=== PATIENT | male | born 1950 | race Caucasian/White ===

== ENCOUNTER 2016-03-16 19:13 | Emergency (ER) | payer OTHER, MEDICARE ==
[~2016-03-16] VITALS: Ht 172.7 cm; Wt 64.1 kg
[2016-03-16 19:40] VITALS: BP 124/88; PULSE 95; RESP 15; TEMP 98.2; O2SAT 96
[2016-03-16 20:36] LABS: EOSINOPHIL % 0.9 % (0.0-4.0); HEMATOCRIT 44.3 % (39.0-51.0); HEMO FLAGS DIFF FINAL; LYMPH % 29.5 % (9.0-44.0); LYMPHOCYTE # 1.5 TH/MM3 (1.0-4.8); MEAN CELL VOLUME 94.4 FL (80.0-100.0); MEAN CORPUSCULAR HEMOGLOBIN 32.3 PG (27.0-34.0); MEAN CORPUSCULAR HGB CONC 34.2 % (32.0-36.0); MONO % 7.8 % (0.0-8.0); NEUT % 60.8 % (16.0-70.0); PLATELET COUNT 186 TH/MM3 (150-450); RED CELL DISTRIBUTION WIDTH 15.4 % (11.6-17.2)
[2016-03-16 20:50] LABS: AMPHETAMINE, URINE NEG (NEG); BARBITURATES, URINE NEG (NEG); COCAINE, URINE NEG (NEG)
[2016-03-16 21:02] LABS: ANION GAP 11 MEQ/L (5-15)
[2016-03-16 21:06] LABS: ALKALINE PHOSPHATASE 101 U/L (45-117); ALT (GPT) 38 U/L (12-78); AST (GOT) 40 U/L (15-37); BICARBONATE 25.8 MEQ/L (21.0-32.0); BLOOD UREA NITROGEN 10 MG/DL (7-18); CHLORIDE 103 MEQ/L (98-107); GLOMERULAR FILTRATION RATE 86 ML/MIN (>89); POTASSIUM 3.8 MEQ/L (3.5-5.1); SODIUM (NA) 140 MEQ/L (136-145); TOTAL BILIRUBIN ADULT 0.7 MG/DL (0.2-1.0)
--- NOTE | 2016-03-16 21:45 | PD ---
HPI Chief Complaint: Psychiatric Symptoms Time Seen by Provider: 21:43 Travel History International Travel<30 days: No Contact w/Intl Traveler<30days: No Traveled to known affect area: No History of Present Illness HPI 65-year-old male that presents to the ED for evaluation of psych. Patient was [place] acted by police after apparently him make a call to police saying that he wanted to hurt himself. Patient apparently slightly as well and per [place] Cruz act he was depressed and he made suicidal statements. Patient has a chronic history of substance abuse including alcohol and he is does tell me that his been drinking a lot of alcohol today. Per patient he got upset at another individual who apparently he is renting a house for but he has not pain anything to him since October. He denies any medical problem. Denies any chest pain. He denies taking any medications. No drugs. Denies any falls or injuries. No complaints at all. He denies any suicidal or homicidal ideation himself. He has been here before for similar. [facility] Past Medical History Medical History: Denies Significant Hx Diabetes: No Diminished Hearing: No Tetanus Vaccination: > 5 Years Social History Alcohol Use: Yes (2 bottles of wine/daily) Tobacco Use: No Substance Use: Yes Allergies-Medications (Allergen,Severity, Reaction): Coded Allergies: No Known Allergies (Unverified , 12/19/15) Reported Meds & Prescriptions Reported Meds & Active Scripts Active No Active Prescriptions or Reported Medications Review of Systems Except as stated in HPI: all other systems reviewed are Neg Physical Exam Narrative GENERAL: SKIN: Warm and dry. HEAD: Atraumatic. Normocephalic. EYES: Pupils equal and round. No scleral icterus. No injection or drainage. ENT: No nasal bleeding or discharge. Mucous membranes pink and moist. NECK: Trachea midline. No JVD. CARDIOVASCULAR: Regular rate and rhythm. RESPIRATORY: No accessory muscle use. Clear to auscultation. Breath sounds equal bilaterally. GASTROINTESTINAL: Abdomen soft, non-tender, nondistended. Hepatic and splenic margins not palpable. MUSCULOSKELETAL: Extremities without clubbing, cyanosis, or edema. No obvious deformities. NEUROLOGICAL: Awake and alert. No obvious cranial nerve deficits. Motor grossly within normal limits. Five out of 5 muscle strength in the arms and legs. Normal speech. PSYCHIATRIC: Intoxicated mood and affect; insight and judgment normal. Data Data Last Documented VS Vital Signs Date Time Temp Pulse Resp B/P Pulse Ox O2 Delivery O2 Flow Rate FiO2 03/16/16 19:40 98.2 95 15 124/88 96 Orders Complete Blood Count With Diff (03/16/16 20:05) Comprehensive Metabolic Panel (03/16/16 20:05) Drug Screen, Random Urine (03/16/16 20:05) Alcohol (Ethanol) (03/16/16 20:05) Psych Screen (03/16/16 20:05) Labs Laboratory Tests Test 03/16/16 20:00 White Blood Count 5.0 TH/MM3 Red Blood Count 4.70 MIL/MM3 Hemoglobin 15.2 GM/DL Hematocrit 44.3 % Mean Corpuscular Volume 94.4 FL Mean Corpuscular Hemoglobin 32.3 PG Mean Corpuscular Hemoglobin 34.2 % Concent Red Cell Distribution Width 15.4 % Platelet Count 186 TH/MM3 Mean Platelet Volume 7.6 FL Neutrophils (%) (Auto) 60.8 % Lymphocytes (%) (Auto) 29.5 % Monocytes (%) (Auto) 7.8 % Eosinophils (%) (Auto) 0.9 % Basophils (%) (Auto) 1.0 % Neutrophils # (Auto) 3.0 TH/MM3 Lymphocytes # (Auto) 1.5 TH/MM3 Monocytes # (Auto) 0.4 TH/MM3 Eosinophils # (Auto) 0.0 TH/MM3 Basophils # (Auto) 0.0 TH/MM3 CBC Comment DIFF FINAL Differential Comment Urine Opiates Screen NEG Urine Barbiturates Screen NEG Urine Amphetamines Screen NEG Urine Benzodiazepines Screen NEG Urine Cocaine Screen NEG Urine Cannabinoids Screen NEG MDM Medical Decision Making Medical Screen Exam Complete: Yes Emergency Medical Condition: Yes Medical Record Reviewed: Yes Interpretation(s) Tox screen negative other than positive for alcohol. CBC Diagram 03/16/16 20:00 Differential Diagnosis Depression versus suicidal ideation versus anxiety versus adjustment disorder versus mood disorder versus bipolar disorder versus schizophrenia versus paranoid disorder versus psychosis versus substance abuse versus alcohol abuse versus alcohol induced psychosis versus homicidality addition versus cutting versus personality disorder Narrative Course 65-year-old male that presents to the ED for evaluation of psych. Patient was properly examined and was found to have signs and symptoms consistent appears to be psychiatric illness. Labs were drawn. Patient was medically clear. Okay to be seen by psych. Mental health screening was discussed with the patient. Diagnosis Primary Impression: Substance induced mood disorder Additional Impression: Alcohol abuse Scripts No Active Prescriptions or Reported Meds Brandon Owens Mar 16, 2016 21:45
[2016-03-16] MEDS ORDERED: FLUMAZENIL 0.5 MG/5 ML VIAL IV PUSH PRN (22:00)
[2016-03-16] MEDS ORDERED: LORazepam 2 MG TAB PO PRN (22:00)
[2016-03-16] MEDS ORDERED: LORazepam 1 MG TAB PO PRN (22:00)
[2016-03-16] MEDS ORDERED: LORazepam 2 MG/ML VIAL IV PUSH PRN ×4 (22:00)
[2016-03-16] MEDS ORDERED: ONDANSETRON HCL 4 MG/2 ML VIAL IV PUSH PRN (22:00)
[2016-03-17 01:51] VITALS: BP 123/78; PULSE 81; RESP 18; O2SAT 100
[2016-03-17 06:23] VITALS: BP 124/71; PULSE 80; RESP 17; O2SAT 98
[2016-03-17 09:54] VITALS: BP 124/71
--- NOTE | 2016-03-17 10:21 | MB ---
cc: FAHEEM BAKER MD DATE OF CONSULTATION: 03/17/2016 PHYSICIAN REQUESTING CONSULTATION Emergency department. REASON FOR CONSULTATION De [place] Cruz Act. HISTORY OF PRESENT ILLNESS Mr. Jensen is a 65-year-old male of a [place] extraction who presents under a [place] Cruz Act from [place] [employer] alleging that the patient called and said he wanted to kill himself because he lived alone. Reviewing the electronic medical record, I see that the patient has presented several times in the past for making similar statements while intoxicated with alcohol. Most recently he was in the ED in December of 2015. His alcohol level on presentation here was 261. The patient was seen and examined. Chart was reviewed. Case was discussed with nurse in the J pod. There has been no evidence of any suicidality or homicidality in the ED overnight. On my examination today, the patient is clinically sober. He adamantly denies any suicidal or homicidal ideation. He says he is looking forward to his retiring and being with her more continuously as he presently splits his time between here and [place] where she is staying. He denies any issues with low mood or elevated mood, nor can I elicit any depressive or hypomanic/manic symptoms. No anxiety symptoms. He denies audiovisual hallucinations and I can elicit no delusional beliefs. The remainder of the psychiatric ROS is negative. The patient requests discharge from the ED this morning. PAST PSYCHIATRIC HISTORY The patient denies a history of psychiatric diagnosis. He denies a history of inpatient or outpatient psychiatric treatment. He denies a history of suicide attempts. FAMILY HISTORY The patient denies family history of serious mental illness or suicide. The patient reports that his mother and father struggled with alcoholism. CHEMICAL DEPENDENCY HISTORY The patient insists that he usually does not drink but says that he was feeling stressed out because he has tenants who live upstairs from him and is not paying rent as he should. He maintains he only had three glasses a white wine last night. No reported history of complicated withdrawal. The patient does not view his substance use as problematic even though it seems to have resulted in him coming into the ER multiple times. SOCIAL HISTORY The patient reports he presently lives alone. His is in [facility]. He travels back and forth to be with her. His has some children, a son and daughter. He is college educated. 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 He denies any or legal history. Denies any access to guns or firearms. PAST MEDICAL HISTORY The patient denies. REVIEW OF SYSTEMS No reported headache, vision or hearing changes, chest pain, shortness of breath, bowel or bladder issues. No other somatic complaints. PHYSICAL EXAMINATION Physical examination was completed in the emergency room by the ER staff and the patient was medically cleared. On my examination today, the patient appears to be in no acute physical distress. He is clinically sober. No signs of withdrawal noted. Labs and vital signs reviewed. MENTAL STATUS EXAMINATION The patient is in hospital gown. He is well-groomed. He is awake, alert and oriented x3. No evidence of delirium. No abnormal motor movements noted. Speech is within normal limits for rate, tone and volume. Language and fund of knowledge seem adequate and appropriate for age. Mood is fair and affect is full and reactive. Thought process linear. No loosening of associations. No evident delusions. Denies AVH. Denies suicidal or homicidal ideation. Insight and judgment are fair generally but likely poor with respect to the alcohol use issues. ASSESSMENT/PLAN 1. Alcohol abuse with intoxication, intoxication now resolved, F10.120. This is a 65-year-old male with psychiatric history as detailed above who presents under a De [place] Cruz Act after making suicidal statements while intoxicated. Now that he has sobered up he denies any suicidal ideation, intent or plan on direct questioning. I can detect no unstable mood, anxiety or psychotic disorder in this patient at this time. Weighing the acute, chronic, and protective factors and based on the available evidence, I director corporate communications to a reasonable degree of medical certainty that the patient is at low imminent risk of harm to self or others from mental illness as defined under the De [place] Cruz Act and his level of function is adequate for outpatient care. The patient does not meet De La Cruz Act criteria and I have lifted the De La Cruz Act. I have strongly recommended that the patient pursue chemical dependency evaluation and treatment because, even though his alcohol use is apparently sporadic, it seems to result in him getting brought into the ED quite a bit. The patient is precontemplative with regards to changing his pattern of alcohol use, unfortunately. We will provide him with some chemical dependency referrals. I have counseled the patient likewise to return to the psychiatric emergency room for any concerning psychiatric symptoms as part of a general safety plan. The patient is otherwise psychiatrically clear for discharge from the ED. Thank you very much for this consultation. Faheem RUSSELL /9:44 AM /10:00 AM AMELIE
== END 2016-03-17 10:08 | disposition home or self-care (01) ==
LOC: NEPA 19:13 → NEPJ 03-17 10:08
DX: F10.14 Alcohol abuse with alcohol-induced mood disorder (principal); F10.120 Alcohol abuse with intoxication, uncomplicated; Y90.8 Blood alcohol level of 240 mg/100 ml or more
CPT/HCPCS: 80053; 80307; 80320; 85025; 99283

== ENCOUNTER 2016-05-27 17:34 | Emergency (ER) | payer OTHER, MEDICARE ==
[2016-05-27 17:41] VITALS: BP 110/78; PULSE 92; RESP 18; TEMP 99; O2SAT 95
--- NOTE | 2016-05-27 18:31 | PD ---
HPI Chief Complaint: Psychiatric Symptoms Time Seen by Provider: 18:26 Travel History International Travel<30 days: No Contact w/Intl Traveler<30days: No Traveled to known affect area: No History of Present Illness HPI 66-year-old male that presents to the ED for evaluation of psych. Patient was [place] acted by police after apparently urinary in with another individual will intoxicated. Patient denies any medical complaints. Per patient he takes no medications. He does tell me that he did drink wine today. Unclear as to what the argument was about but per patient she's never been De La Cruz acted in the past. He apparently made some suicidal statements on the argument nose with the police was called. Patient denies any injuries. Patient denies any other medical problems. Unclear as to the length of symptoms. Denies any psychiatric history. Patient has never been here for psychiatric illness before. 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 HEAD: Atraumatic. Normocephalic. EYES: Pupils equal and round 4 mm reactive to light and accommodation. No scleral icterus. No injection or drainage. ENT: No nasal bleeding or discharge. Mucous membranes pink and moist. Tongue is midline. No uvula deviation. NECK: Trachea midline. No JVD. CARDIOVASCULAR: Regular rate and rhythm. No murmurs, S3, S4. RESPIRATORY: No accessory muscle use. Clear to auscultation. Breath sounds equal bilaterally. GASTROINTESTINAL: Abdomen soft, non-tender, nondistended. Hepatic and splenic margins not palpable. MUSCULOSKELETAL: Extremities without clubbing, cyanosis, or edema. No obvious deformities. Full range of motion of the upper and lower extremities bilaterally. 2+ pulses bilaterally. NEUROLOGICAL: Awake and alert and oriented x 4. No obvious cranial nerve deficits. Motor grossly within normal limits. Five out of 5 muscle strength in the arms and legs. Normal speech. PSYCHIATRIC: Intoxicated mood and affect; insight and judgment normal. Data Data Last Documented VS Vital Signs Date Time Temp Pulse Resp B/P Pulse Ox O2 Delivery O2 Flow Rate FiO2 05/27/16 17:51 18 05/27/16 17:41 99.0 92 110/78 95 Orders Complete Blood Count With Diff (05/27/16 17:57) Comprehensive Metabolic Panel (05/27/16 17:57) Psych Screen (05/27/16 17:57) Drug Screen, Random Urine (05/27/16 17:57) Alcohol (Ethanol) (05/27/16 17:57) Salicylates (Aspirin) (05/27/16 17:57) Tylenol (Acetaminophen) (05/27/16 17:57) Alcohol Withdrawal Asmt-Ciwa ONCE (05/27/16 19:36) Ondansetron Odt (Zofran Odt) (05/27/16 19:45) Acetaminophen (Tylenol) (05/27/16 19:45) Flumazenil Inj (Romazicon Inj) (05/27/16 19:45) Lorazepam (Ativan) (05/27/16 19:45) Lorazepam Inj (Ativan Inj) (05/27/16 19:45) Lorazepam (Ativan) (05/27/16 19:45) Lorazepam Inj (Ativan Inj) (05/27/16 19:45) Lorazepam Inj (Ativan Inj) (05/27/16 19:45) Lorazepam Inj (Ativan Inj) (05/27/16 19:45) Labs Laboratory Tests Test 05/27/16 05/27/16 17:54 17:56 White Blood Count 6.3 TH/MM3 Red Blood Count 4.52 MIL/MM3 Hemoglobin 14.6 GM/DL Hematocrit 43.7 % Mean Corpuscular Volume 96.8 FL Mean Corpuscular Hemoglobin 32.2 PG Mean Corpuscular Hemoglobin 33.3 % Concent Red Cell Distribution Width 13.6 % Platelet Count 243 TH/MM3 Mean Platelet Volume 7.1 FL Neutrophils (%) (Auto) 58.2 % Lymphocytes (%) (Auto) 32.0 % Monocytes (%) (Auto) 7.8 % Eosinophils (%) (Auto) 1.0 % Basophils (%) (Auto) 1.0 % Neutrophils # (Auto) 3.7 TH/MM3 Lymphocytes # (Auto) 2.0 TH/MM3 Monocytes # (Auto) 0.5 TH/MM3 Eosinophils # (Auto) 0.1 TH/MM3 Basophils # (Auto) 0.1 TH/MM3 CBC Comment DIFF FINAL Differential Comment Sodium Level 138 MEQ/L Potassium Level 4.0 MEQ/L Chloride Level 104 MEQ/L Carbon Dioxide Level 23.2 MEQ/L Anion Gap 11 MEQ/L Blood Urea Nitrogen 8 MG/DL Creatinine 0.94 MG/DL Estimat Glomerular Filtration 80 ML/MIN Rate Random Glucose 81 MG/DL Calcium Level 8.5 MG/DL Total Bilirubin 0.6 MG/DL Aspartate Amino Transf 18 U/L (AST/SGOT) Alanine Aminotransferase 23 U/L (ALT/SGPT) Alkaline Phosphatase 117 U/L Total Protein 7.9 GM/DL Albumin 3.9 GM/DL Salicylates Level LESS THAN 1.7 MG/DL Acetaminophen Level LESS THAN 2.0 MCG/ML Ethyl Alcohol Level 226 MG/DL Urine Opiates Screen NEG Urine Barbiturates Screen NEG Urine Amphetamines Screen NEG Urine Benzodiazepines Screen NEG Urine Cocaine Screen NEG Urine Cannabinoids Screen NEG MDM Medical Decision Making Medical Screen Exam Complete: Yes Emergency Medical Condition: Yes Medical Record Reviewed: Yes Interpretation(s) CBC Diagram 05/27/16 17:54 BMP Diagram 05/27/16 17:54 tox positive for alcohol in the 200s Differential Diagnosis Depression versus suicidal ideation versus anxiety versus adjustment disorder versus mood disorder versus bipolar disorder versus schizophrenia versus paranoid disorder versus psychosis versus substance abuse versus alcohol abuse versus alcohol induced psychosis versus homicidality addition versus cutting versus personality disorder Narrative Course 66-year-old male that presents to the ED for evaluation of psych. Patient was properly examined and was found to have no signs of acute disease. This time this appears to be alcohol induced mood disorder. No sign of illness at this time. Patient has been here for similar in the past. Labs were drawn. Patient was medically clear. Okay to be seen by psych. high alcohol level. CIWA ordered. Mental health screening was discussed with the patient. Diagnosis Primary Impression: Substance induced mood disorder Additional Impression: Alcohol abuse Scripts No Active Prescriptions or Reported Meds Brandon Owens May 27, 2016 18:30
[2016-05-27 18:53] LABS: AUTOMATED NEUTROPHIL # 3.7 TH/MM3 (1.8-7.7); BASOPHIL # 0.1 TH/MM3 (0-0.2); EOSINOPHIL # 0.1 TH/MM3 (0-0.4); HEMATOCRIT 43.7 % (39.0-51.0); HEMO FLAGS DIFF FINAL; MEAN CELL VOLUME 96.8 FL (80.0-100.0); MEAN CORPUSCULAR HEMOGLOBIN 32.2 PG (27.0-34.0); MEAN CORPUSCULAR HGB CONC 33.3 % (32.0-36.0); MONO % 7.8 % (0.0-8.0); NEUT % 58.2 % (16.0-70.0); PLATELET COUNT 243 TH/MM3 (150-450); RED BLOOD COUNT 4.52 MIL/MM3 (4.50-5.90); RED CELL DISTRIBUTION WIDTH 13.6 % (11.6-17.2); WHITE BLOOD COUNT 6.3 TH/MM3 (4.0-11.0)
[2016-05-27 19:00] LABS: AMPHETAMINE, URINE NEG (NEG); BARBITURATES, URINE NEG (NEG); COCAINE, URINE NEG (NEG)
[2016-05-27 19:09] LABS: ANION GAP 11 MEQ/L (5-15)
[2016-05-27 19:12] LABS: ACETAMINOPHEN LESS THAN 2.0 MCG/ML (10.0-30.0); ALKALINE PHOSPHATASE 117 U/L (45-117); ALT (GPT) 23 U/L (12-78); AST (GOT) 18 U/L (15-37); BICARBONATE 23.2 MEQ/L (21.0-32.0); BLOOD UREA NITROGEN 8 MG/DL (7-18); CHLORIDE 104 MEQ/L (98-107); GLOMERULAR FILTRATION RATE 80 ML/MIN (>89); SODIUM (NA) 138 MEQ/L (136-145); TOTAL BILIRUBIN ADULT 0.6 MG/DL (0.2-1.0)
[2016-05-27] MEDS ORDERED: ONDANSETRON ODT 4 MG TAB PO PRN (19:45)
[2016-05-27] MEDS ORDERED: LORazepam 1 MG TAB PO PRN (19:45)
[2016-05-27] MEDS ORDERED: FLUMAZENIL 0.5 MG/5 ML VIAL IV PUSH PRN (19:45)
[2016-05-27] MEDS ORDERED: LORazepam 2 MG TAB PO PRN (19:45)
[2016-05-27] MEDS ORDERED: ACETAMINOPHEN 325 MG TAB PO PRN (19:45)
[2016-05-27] MEDS ORDERED: LORazepam 2 MG/ML VIAL IV PUSH PRN ×4 (19:45)
[2016-05-27 20:13] VITALS: BP 123/80; PULSE 75; RESP 18; O2SAT 97
[2016-05-27 22:31] VITALS: BP 104/55; PULSE 79; RESP 18; O2SAT 96
== END 2016-05-28 00:32 | disposition home or self-care (01) ==
LOC: NEDAMB 17:34 → NEPJ 05-28 00:32
DX: F10.14 Alcohol abuse with alcohol-induced mood disorder (principal); Z87.891 Personal history of nicotine dependence
CPT/HCPCS: 80053; 80307; 85025; 99283

== ENCOUNTER 2016-08-22 22:15 | Emergency (ER) | payer MEDICARE, OTHER ==
[~2016-08-22] VITALS: Ht 172.7 cm; Wt 63.6 kg
[2016-08-22] MEDS ORDERED: HALOPERIDOL LACTATE 5 MG/ML AMP IV ONE (22:30)
[2016-08-22] MEDS ORDERED: DIPHTH/TETANUS/ACEL PERTUSSIS (BOOSTER) 0.5 ML VIAL/PFS IM ONE (22:30)
[2016-08-22] MEDS ORDERED: LORazepam 2 MG/ML VIAL IV ONE (22:30)
[2016-08-22] MEDS ORDERED: SODIUM CHLOR 0.9% 1000 ML INJ 1,000 ML IV ONE (22:30)
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
[2016-08-22 22:43] VITALS: BP 132/91; PULSE 105; RESP 18; TEMP 101; O2SAT 95
[2016-08-22 23:04] LABS: AUTOMATED NEUTROPHIL # 4.8 TH/MM3 (1.8-7.7); BASOPHIL # 0.1 TH/MM3 (0-0.2); BASOPHIL % 0.8 % (0.0-2.0); EOSINOPHIL % 0.4 % (0.0-4.0); HEMATOCRIT 42.9 % (39.0-51.0); HEMO FLAGS DIFF FINAL; LYMPH % 32.3 % (9.0-44.0); LYMPHOCYTE # 2.7 TH/MM3 (1.0-4.8); MEAN CELL VOLUME 97.4 FL (80.0-100.0); MEAN CORPUSCULAR HEMOGLOBIN 33.9 PG (27.0-34.0); MEAN CORPUSCULAR HGB CONC 34.7 % (32.0-36.0); MONO % 9.7 % (0.0-8.0); NEUT % 56.8 % (16.0-70.0); PLATELET COUNT 211 TH/MM3 (150-450); RED BLOOD COUNT 4.41 MIL/MM3 (4.50-5.90); RED CELL DISTRIBUTION WIDTH 14.6 % (11.6-17.2); WHITE BLOOD COUNT 8.4 TH/MM3 (4.0-11.0)
[2016-08-22 23:15] LABS: AMPHETAMINE, URINE NEG (NEG); BARBITURATES, URINE NEG (NEG); COCAINE, URINE NEG (NEG)
[2016-08-22 23:21] LABS: ALT (GPT) 34 U/L (12-78); ANION GAP 14 MEQ/L (5-15); AST (GOT) 34 U/L (15-37); BICARBONATE 22.2 MEQ/L (21.0-32.0); BLOOD UREA NITROGEN 18 MG/DL (7-18); CHLORIDE 103 MEQ/L (98-107); GLOMERULAR FILTRATION RATE 71 ML/MIN (>89); POTASSIUM 3.8 MEQ/L (3.5-5.1); SODIUM (NA) 139 MEQ/L (136-145)
[2016-08-22 23:25] LABS: ALKALINE PHOSPHATASE 95 U/L (45-117); TOTAL BILIRUBIN ADULT 0.9 MG/DL (0.2-1.0)
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
== END 2016-08-23 09:09 | disposition home or self-care (01) ==
LOC: NEPD 22:15
DX: F10.129 Alcohol abuse with intoxication, unspecified (principal); Y90.8 Blood alcohol level of 240 mg/100 ml or more; Z23 Encounter for immunization
CPT/HCPCS: 70450; 80053; 80307; 85025; 90471; 90715; 96361; 96374; 96375; 99285; J1630; J2060; J7030

== ENCOUNTER 2016-08-30 14:40 | Emergency (ER) | payer MEDICARE, OTHER ==
[~2016-08-30] VITALS: Ht 177.8 cm; Wt 70.0 kg
[2016-08-30 16:50] VITALS: BP 132/84; PULSE 84; RESP 16; TEMP 97.9; O2SAT 97
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
[2016-08-30] MEDS ORDERED: LORazepam 0.5 MG TAB PO ONE (17:30)
[2016-08-30] MEDS ORDERED: chlordiazePOXIDE 25 MG CAP PO ONE (17:30)
[2016-08-30 18:50] LABS: BLOOD, URINE NEG (NEG); COMMENT (UR) CULT NOT INDICATED; CULTURE IF INDICATED CULT NOT INDICATED; GLUCOSE,URINE NEG (NEG); KETONE, URINE 10 mg/dL (NEG); MUCUS URINE MOD /lpf (OCC); NITRITE,URINE NEG (NEG); PH, URINE 5.5 (5.0-8.5); URINE COLOR YELLOW (YELLW/STRAW)
[2016-08-30 18:50] LABS: AUTOMATED NEUTROPHIL # 4.1 TH/MM3 (1.8-7.7); BASOPHIL # 0.1 TH/MM3 (0-0.2); BASOPHIL % 1.3 % (0.0-2.0); EOSINOPHIL % 0.5 % (0.0-4.0); HEMATOCRIT 44.2 % (39.0-51.0); HEMO FLAGS DIFF FINAL; LYMPH % 19.5 % (9.0-44.0); LYMPHOCYTE # 1.1 TH/MM3 (1.0-4.8); MEAN CORPUSCULAR HEMOGLOBIN 33.4 PG (27.0-34.0); MEAN CORPUSCULAR HGB CONC 33.1 % (32.0-36.0); MONO % 6.4 % (0.0-8.0); NEUT % 72.3 % (16.0-70.0); PLATELET COUNT 242 TH/MM3 (150-450); RED BLOOD COUNT 4.38 MIL/MM3 (4.50-5.90); RED CELL DISTRIBUTION WIDTH 14.5 % (11.6-17.2); WHITE BLOOD COUNT 5.7 TH/MM3 (4.0-11.0)
[2016-08-30 19:15] LABS: ALKALINE PHOSPHATASE 102 U/L (45-117); ALT (GPT) 39 U/L (12-78); TOTAL BILIRUBIN ADULT 0.6 MG/DL (0.2-1.0)
[2016-08-30 19:20] VITALS: BP 140/81; PULSE 78; RESP 18; O2SAT 98
[2016-08-30 19:29] LABS: ANION GAP 9 MEQ/L (5-15); AST (GOT) 38 U/L (15-37); BICARBONATE 25.1 MEQ/L (21.0-32.0); BLOOD UREA NITROGEN 16 MG/DL (7-18); CHLORIDE 106 MEQ/L (98-107); GLOMERULAR FILTRATION RATE 80 ML/MIN (>89); POTASSIUM 4.1 MEQ/L (3.5-5.1); SODIUM (NA) 140 MEQ/L (136-145)
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
[2016-08-30 20:59] LABS: AMPHETAMINE, URINE NEG (NEG); BARBITURATES, URINE NEG (NEG); COCAINE, URINE NEG (NEG)
[2016-08-30 21:05] VITALS: BP 152/87; PULSE 72; RESP 18; TEMP 97.1; O2SAT 97
[2016-08-31 07:05] VITALS: BP 142/83; PULSE 77; RESP 18; O2SAT 96
[2016-08-31 11:11] VITALS: BP 151/78; PULSE 88; RESP 16
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
[2016-08-31 18:55] VITALS: BP 132/74; TEMP 98.3
== END 2016-08-31 18:57 | disposition home or self-care (01) ==
LOC: NEDAMB 14:40 → NEPJ 08-31 18:57
DX: F43.25 Adjustment disorder with mixed disturbance of emotions and conduct (principal); F10.10 Alcohol abuse, uncomplicated; R45.851 Suicidal ideations; Z87.891 Personal history of nicotine dependence
CPT/HCPCS: 80053; 80307; 81001; 85025; 99284

== ENCOUNTER 2016-09-11 18:07 | Emergency (ER) | payer MEDICARE, OTHER ==
[2016-09-11 18:11] VITALS: BP 108/71; PULSE 99; RESP 20; TEMP 98.9; O2SAT 95
--- NOTE | 2016-09-11 18:43 | PD ---
Physical Exam Date Seen by Provider: Sep 11, 2016 Time Seen by Provider: 18:41 Narrative 66 yo male here for evaluation of possible infection to both feet. Has had this for 10 days. Pain is severe. Hurts to walk. Swollen 2nd toes on the right and left foot with redness noted. Erythema seems to be more severe on left foot. Discoloration noted to both toes. tender. Vitals are stable. Awaiting bed placement. Data Data Last Documented VS Vital Signs Date Time Temp Pulse Resp B/P Pulse Ox O2 Delivery O2 Flow Rate FiO2 09/11/16 18:11 98.9 99 20 108/71 95 Room Air [facility] Medical Record Reviewed: Yes Supervised Visit with KIRILL: No Scripts No Active Prescriptions or Reported Meds Brandon Owens Sep 11, 2016 18:43
== END 2016-09-11 21:05 | disposition left against medical advice (07) ==
LOC: NETRI 21:00
DX: M79.89 Other specified soft tissue disorders (principal); L53.9 Erythematous condition, unspecified; M79.675 Pain in left toe(s); M79.674 Pain in right toe(s)
CPT/HCPCS: 99281

== ENCOUNTER 2016-09-26 08:57 | Inpatient (IN) | payer MEDICARE ==
[~2016-09-26] VITALS: Ht 170.2 cm; Wt 65.0 kg
[2016-09-26 08:58] VITALS: BP 131/77; PULSE 96; RESP 20; TEMP 99; O2SAT 97
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
[2016-09-26] MEDS ORDERED: VANCOMYCIN INJ 1,000 MG in SODIUM CHLOR 0.9% 250 ML INJ 250 ML IV STA (09:21)
[2016-09-26] MEDS ORDERED: SODIUM CHLOR 0.9% 1000 ML INJ 1,000 ML IV ONE ×2 (09:21)
[2016-09-26] MEDS ORDERED: SODIUM CHLOR 0.9% 1000 ML INJ 100 ML IV ONE (09:21)
--- NOTE | 2016-09-26 09:54 | RADRPT ---
EXAM DATE/TIME: 09/26/2016 09:27 [facility] COMPARISON: No previous studies available for comparison. INDICATIONS : Cough. MEDICAL HISTORY : None. SURGICAL HISTORY : None. ENCOUNTER: Initial ACUITY: 1 day PAIN SCORE: 0/10 LOCATION: Bilateral chest FINDINGS: Lungs are mildly hyperexpanded without significant focal pleural or parenchymal opacities. Cardiomedi astinal contours are within normal limits. Multiple healed bilateral fractures are noted. CONCLUSION: 1. No acute cardiopulmonary disease. Erik Rosa MD on September 26, 2016 at 9:52 Board Certified Radiologist. This report was verified electronically.
[2016-09-26 10:22] LABS: AUTOMATED NEUTROPHIL # 8.6 TH/MM3 (1.8-7.7); BASOPHIL # 0.2 TH/MM3 (0-0.2); BASOPHIL % 2.2 % (0.0-2.0); EOSINOPHIL # 0.1 TH/MM3 (0-0.4); EOSINOPHIL % 1.1 % (0.0-4.0); HEMATOCRIT 39.7 % (39.0-51.0); LYMPH % 6.4 % (9.0-44.0); LYMPHOCYTE # 0.7 TH/MM3 (1.0-4.8); MEAN CELL VOLUME 100.4 FL (80.0-100.0); MEAN CORPUSCULAR HEMOGLOBIN 34.8 PG (27.0-34.0); MEAN CORPUSCULAR HGB CONC 34.6 % (32.0-36.0); MONO % 6.3 % (0.0-8.0); PLATELET COUNT 212 TH/MM3 (150-450); RED BLOOD COUNT 3.95 MIL/MM3 (4.50-5.90); RED CELL DISTRIBUTION WIDTH 14.3 % (11.6-17.2); WHITE BLOOD COUNT 10.2 TH/MM3 (4.0-11.0)
[2016-09-26 10:28] LABS: HEMO FLAGS AUTO DIFF
[2016-09-26 10:38] LABS: ALT (GPT) 35 U/L (12-78); ANION GAP 8 MEQ/L (5-15); AST (GOT) 42 U/L (15-37); BICARBONATE 25.7 MEQ/L (21.0-32.0); BLOOD UREA NITROGEN 23 MG/DL (7-18); CHLORIDE 101 MEQ/L (98-107); GLOMERULAR FILTRATION RATE 88 ML/MIN (>89); POTASSIUM 4.2 MEQ/L (3.5-5.1); SODIUM (NA) 135 MEQ/L (136-145)
[2016-09-26 10:41] LABS: ALKALINE PHOSPHATASE 90 U/L (45-117); TOTAL BILIRUBIN ADULT 2.1 MG/DL (0.2-1.0)
--- NOTE | 2016-09-26 10:52 | RADRPT ---
EXAM DATE/TIME: 09/26/2016 09:29 [facility] COMPARISON: No previous studies available for comparison. INDICATIONS : Right foot pain, pus like wounds MEDICAL HISTORY : None. SURGICAL HISTORY : None. ENCOUNTER: Initial ACUITY: 1 day PAIN SCORE: 8/10 LOCATION: Right foot FINDINGS: 3 views of the right foot reveal a soft tissue defect involving the lateral plantar soft tissues at t he level of the mid foot. At least 7 radiopaque foreign bodies are observed within the soft tissue de fect. There is a dominant foreign body that measures 4 x 1 mm. Density is approaching that of metal. No cortical destruction or lucency. No fracture or dislocation. CONCLUSION: Soft tissue defect with multiple radiopaque foreign bodies as detailed above. Robert Malhotra Jr., MD on September 26, 2016 at 10:47 Board Certified Radiologist. This report was verified electronically.
[2016-09-26 11:03] VITALS: BP 137/79; PULSE 78; RESP 16; O2SAT 100
[2016-09-26 11:04] LABS: SCAN/DIFF FINAL DIFF MANUAL
[2016-09-26] MEDS ORDERED: ACETAMINOPHEN 325 MG TAB PO PRN (11:15)
[2016-09-26] MEDS ORDERED: ONDANSETRON HCL 4 MG/2 ML VIAL IV PUSH PRN (11:15)
[2016-09-26 11:57] VITALS: BP 148/84; PULSE 75; RESP 16; O2SAT 99
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
[2016-09-26] MEDS ORDERED: Vancomycin Consult Pharmacy 1 EA OTHER SCH (13:00)
[2016-09-26 13:13] LABS: BACTERIA, URINE OCC /hpf; BLOOD, URINE NEG (NEG); GLUCOSE,URINE NEG (NEG); HYALINE CAST, URINE 2 /lpf (RARE); KETONE, URINE 80 mg/dL (NEG); MUCUS URINE MANY /lpf (OCC); NITRITE,URINE NEG (NEG); SQUAMOUS EPITHELIAL CELL URINE 1 /hpf (0-5); TRANSITIONAL EPI CELLS, URINE <1 /hpf
[2016-09-26 13:18] LABS: URINE COLOR LIGHT-ORANGE (YELLW/STRAW)
[2016-09-26 13:19] LABS: COMMENT (UR) CATH-CULTURE IND; CULTURE IF INDICATED CATH CULTURE IND
--- NOTE | 2016-09-26 13:26 | RADRPT ---
EXAM DATE/TIME: 09/26/2016 12:52 [facility] COMPARISON: No previous studies available for comparison. INDICATIONS : Increased lab values. MEDICAL HISTORY : Disseminated skin infection. SURGICAL HISTORY : None. ENCOUNTER: Initial ACUITY: 1 day PAIN SCORE: 0/10 LOCATION: Bilateral upper quadrant MEASUREMENTS: LIVER: 14.6 cm length COMMON DUCT: 5 mm RIGHT KIDNEY: 10.0 x 6.5 x 4.2 cm SPLEEN: 11.2 cm length FINDINGS: LIVER: Increased hepatic echotexture without focal lesion or ductal dilatation. COMMON DUCT: No intraluminal mass or stone visualized. GALLBLADDER: Contains no stones, demonstrates no wall thickening or pericholecystic fluid. PANCREAS: The visualized portions are within normal limits. RIGHT KIDNEY: No hydronephrosis, stone or mass. SPLEEN: No focal lesion. CONCLUSION: 1. Increased hepatic echotexture characteristic of diffuse fatty infiltration. 2. Otherwise negative. Italo Pope MD on September 26, 2016 at 13:23 Board Certified Radiologist. This report was verified electronically.
[2016-09-26] MEDS ORDERED: PIPERACIL-TAZO 3.375 GM PREMIX 50 ML IV SCH (14:00)
[2016-09-26 14:06] VITALS: BP 143/79; PULSE 82; RESP 16; O2SAT 99
--- NOTE | 2016-09-26 15:42 | HHI.PR ---
Addendum to Inpatient Note Addendum Reason: Additional Documentation Additional Information Came to examine the patient in the ED. Patient on weight of 4. Let the patient 's foot clinically he has a large abscess of the right foot. Explained to patient he needs to go to the OR tomorrow morning. Patient refuses states he will sign out AGAINST MEDICAL ADVICE. If patient decides to stay I will see him tomorrow and consider OR debridement on Friday. Explained to the patient that he could lose his foot. He states he doesn't care he cannot stay in the hospital. Lance Artis DPM Sep 26, 2016 15:42
[2016-09-27] MEDS ORDERED: VANCOMYCIN 1,000 MG/NS 250 ML IV SCH ×2 (04:00)
[2016-09-29] MEDS ORDERED: PHARMACY ORDERED LAB ONE (09:45)
== END 2016-09-26 16:14 | disposition left against medical advice (07) | DRG 603 ==
LOC: NEPD 08:57 → NEDA 11:21 → N07A 15:56
PROVIDERS: ADMIT Internal Medicine; ATTEND Internal Medicine
DX: L03.115 Cellulitis of right lower limb (principal); L02.611 Cutaneous abscess of right foot; B95.8 Unspecified staphylococcus as the cause of diseases classified elsewhere; S90.851A Superficial foreign body, right foot, initial encounter; Z87.891 Personal history of nicotine dependence
CPT/HCPCS: 71010; 73630; 76705; 80053; 81001; 82248; 83605; 85007; 85027; 86403; 87040; 87070; 87086; 87186; 87205; 96365; J2543; J3370; J7030; J7050

== ENCOUNTER 2017-02-05 14:36 | Emergency (ER) | payer MEDICARE, OTHER ==
[~2017-02-05] VITALS: Ht 167.6 cm; Wt 65.0 kg
[2017-02-05 14:40] VITALS: BP 135/84; PULSE 91; RESP 16; TEMP 97.8; O2SAT 96
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
== END 2017-02-05 17:04 | disposition home or self-care (01) ==
LOC: NEDAMB 14:36
DX: F10.10 Alcohol abuse, uncomplicated (principal)
CPT/HCPCS: 99282

== ENCOUNTER 2017-03-29 21:01 | Emergency (ER) | payer MEDICARE, OTHER ==
[2017-03-29 21:31] VITALS: BP 150/90; PULSE 78; RESP 16; TEMP 97.8; O2SAT 100
[2017-03-29 22:26] VITALS: BP 161/85; PULSE 74; RESP 20; O2SAT 100
[2017-03-29 22:26] LABS: AUTOMATED NEUTROPHIL # 2.6 TH/MM3 (1.8-7.7); BASOPHIL # 0.1 TH/MM3 (0-0.2); BASOPHIL % 1.2 % (0.0-2.0); EOSINOPHIL % 0.6 % (0.0-4.0); HEMATOCRIT 44.3 % (39.0-51.0); HEMOGLOBIN 15.4 GM/DL (13.0-17.0); LYMPH % 38.7 % (9.0-44.0); LYMPHOCYTE # 1.9 TH/MM3 (1.0-4.8); MEAN CELL VOLUME 100.4 FL (80.0-100.0); MEAN CORPUSCULAR HEMOGLOBIN 34.9 PG (27.0-34.0); MEAN CORPUSCULAR HGB CONC 34.7 % (32.0-36.0); MONO % 6.2 % (0.0-8.0); MONOCYTE # 0.3 TH/MM3 (0-0.9); NEUT % 53.3 % (16.0-70.0); PLATELET COUNT 210 TH/MM3 (150-450); RED BLOOD COUNT 4.41 MIL/MM3 (4.50-5.90); RED CELL DISTRIBUTION WIDTH 14.7 % (11.6-17.2); WHITE BLOOD COUNT 4.8 TH/MM3 (4.0-11.0)
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
[2017-03-29 22:39] LABS: ALT (GPT) 47 U/L (12-78); AST (GOT) 53 U/L (15-37); BICARBONATE 27.8 MEQ/L (21.0-32.0); BLOOD UREA NITROGEN 13 MG/DL (7-18); CALCIUM 8.5 MG/DL (8.5-10.1); CHLORIDE 105 MEQ/L (98-107); CREATININE 0.85 MG/DL (0.60-1.30); GLOMERULAR FILTRATION RATE 90 ML/MIN (>89); GLUCOSE,RANDOM 86 MG/DL (74-106); SODIUM (NA) 140 MEQ/L (136-145)
[2017-03-29 22:49] LABS: ALKALINE PHOSPHATASE 98 U/L (45-117); TOTAL BILIRUBIN ADULT 0.7 MG/DL (0.2-1.0); TOTAL PROTEIN 8.2 GM/DL (6.4-8.2)
[2017-03-29 23:09] LABS: ACETAMINOPHEN LESS THAN 2.0 MCG/ML (10.0-30.0)
[2017-03-30 06:41] VITALS: BP 155/83; PULSE 80; RESP 20; O2SAT 96
== END 2017-03-30 07:14 | disposition home or self-care (01) ==
LOC: NEDAMB 21:01 → NEPD 03-30 07:14
DX: F10.94 Alcohol use, unspecified with alcohol-induced mood disorder (principal); F10.920 Alcohol use, unspecified with intoxication, uncomplicated; Y90.7 Blood alcohol level of 200-239 mg/100 ml
CPT/HCPCS: 80053; 80307; 84443; 85025; 99283

== ENCOUNTER 2017-05-25 18:17 | Emergency (ER) | payer MEDICARE, OTHER ==
[2017-05-25 18:37] VITALS: BP 154/82; PULSE 78; RESP 20; TEMP 98.6; O2SAT 97
--- NOTE | 2017-05-25 18:48 | PD ---
HPI Chief Complaint: Psychiatric Symptoms Time Seen by Provider: 18:44 Travel History International Travel<30 days: No Contact w/Intl Traveler<30days: No Traveled to known affect area: No History of Present Illness HPI 67-year-old male presents the emergency department under the De [place] Cruz act for suicidal ideation. Patient reportedly called 911 stating that he was going to kill himself if he did not get what he wanted. He stated this several times to the motor coach tour operator. Patient now arrives stating that he never sought said these things. He appears intoxicated. History is limited. He is able to ambulate without difficulty. He has no known drug allergies. [facility] Past Medical History Medical History: Denies Significant Hx Diabetes: No Diminished Hearing: No Immunizations Current: No Social History Alcohol Use: Yes (A FEW TIMES A WEEK ) Tobacco Use: No (SMOKE CIGAR - QUIT 30 YEARS ) Substance Use: Yes (alcohol) Allergies-Medications (Allergen,Severity, Reaction): Coded Allergies: No Known Allergies (Unverified , 09/26/16) Reported Meds & Prescriptions Reported Meds & Active Scripts Active No Active Prescriptions or Reported Medications Review of Systems ROS Limitations: Intoxication Except as stated in HPI: all other systems reviewed are Neg General / Constitutional: No: Fever Eyes: No: Visual changes HENT: No: Headaches Cardiovascular: No: Chest Pain or Discomfort Respiratory: No: Shortness of Breath Gastrointestinal: No: Abdominal Pain Genitourinary: No: Dysuria Musculoskeletal: No: Pain Skin: No Rash Neurologic: No: Weakness Psychiatric: No: Depression Endocrine: No: Polydipsia Hematologic/Lymphatic: No: Easy Bruising Physical Exam Exam Limitations: Intoxication Narrative GENERAL: Patient appears intoxicated but otherwise in no acute distress. SKIN: Warm and dry. No signs of trauma. Normal color. Normal turgor. HEAD: Atraumatic. Normocephalic. EYES: Pupils equal and round. No scleral icterus. No injection or drainage. ENT: No nasal bleeding or discharge. Mucous membranes pink and moist. Pharynx is clear. NECK: Trachea midline. Supple CARDIOVASCULAR: Regular rate and rhythm. RESPIRATORY: No accessory muscle use. Clear to auscultation. Breath sounds equal bilaterally. MUSCULOSKELETAL: Extremities without clubbing, cyanosis, or edema. No obvious deformities. NEUROLOGICAL: Awake and alert. No obvious cranial nerve deficits. Motor grossly within normal limits. Five out of 5 muscle strength in the arms and legs. Normal speech. PSYCHIATRIC: Patient is intoxicated Data Data Last Documented VS Vital Signs Date Time Temp Pulse Resp B/P (MAP) Pulse Ox O2 Delivery O2 Flow Rate FiO2 05/25/17 18:37 98.6 78 20 154/82 (106) 97 Orders Orders Complete Blood Count With Diff (05/25/17 18:43) Comprehensive Metabolic Panel (05/25/17 18:43) Thyroid Stimulating Hormone (05/25/17 18:43) Urinalysis - C+S If Indicated (05/25/17 18:43) Psych Screen (05/25/17 18:43) Drug Screen, Random Urine (05/25/17 18:43) Alcohol (Ethanol) (05/25/17 18:43) MDM Medical Decision Making Medical Screen Exam Complete: Yes Emergency Medical Condition: Yes Medical Record Reviewed: Yes Differential Diagnosis De [place] Cruz act. Alcohol intoxication. Alcohol induced mood disorder. Suicidal ideation Narrative Course Patient appears medically stable at time of exam Psychiatric labs were ordered per protocol. Psychiatric screening is ordered. Patient medically clear for psychiatric evaluation. Scripts No Active Prescriptions or Reported Meds Condition: Stable Fernando Akins May 25, 2017 18:47
[2017-05-25 19:29] LABS: BILIRUBIN, URINE NEG (NEG); BLOOD, URINE NEG (NEG); GLUCOSE,URINE NEG (NEG); KETONE, URINE NEG (NEG); NITRITE,URINE NEG (NEG); PH, URINE 7.5 (5.0-8.5); URINE COLOR YELLOW (YELLW/STRAW); URINE LEUKOCYTE ESTERASE NEG (NEG)
[2017-05-25 19:41] LABS: AUTOMATED NEUTROPHIL # 2.5 TH/MM3 (1.8-7.7); BASOPHIL # 0.1 TH/MM3 (0-0.2); BASOPHIL % 1.2 % (0.0-2.0); EOSINOPHIL % 0.4 % (0.0-4.0); HEMATOCRIT 46.4 % (39.0-51.0); HEMOGLOBIN 16.1 GM/DL (13.0-17.0); LYMPH % 48.1 % (9.0-44.0); LYMPHOCYTE # 2.8 TH/MM3 (1.0-4.8); MEAN CELL VOLUME 100.3 FL (80.0-100.0); MEAN CORPUSCULAR HEMOGLOBIN 34.8 PG (27.0-34.0); MEAN CORPUSCULAR HGB CONC 34.7 % (32.0-36.0); MEAN PLATELET VOLUME 7.1 FL (7.0-11.0); MONO % 6.8 % (0.0-8.0); MONOCYTE # 0.4 TH/MM3 (0-0.9); NEUT % 43.5 % (16.0-70.0); PLATELET COUNT 203 TH/MM3 (150-450); RED BLOOD COUNT 4.63 MIL/MM3 (4.50-5.90); RED CELL DISTRIBUTION WIDTH 13.4 % (11.6-17.2); WHITE BLOOD COUNT 5.8 TH/MM3 (4.0-11.0)
[2017-05-25 19:43] LABS: ALBUMIN 4.3 GM/DL (3.4-5.0); AST (GOT) 71 U/L (15-37); BICARBONATE 25.9 MEQ/L (21.0-32.0); BLOOD UREA NITROGEN 9 MG/DL (7-18); CALCIUM 8.8 MG/DL (8.5-10.1); CHLORIDE 106 MEQ/L (98-107); CREATININE 1.03 MG/DL (0.60-1.30); GLOMERULAR FILTRATION RATE 72 ML/MIN (>89); GLUCOSE,RANDOM 98 MG/DL (74-106); SODIUM (NA) 142 MEQ/L (136-145)
[2017-05-25 19:45] LABS: ALT (GPT) 55 U/L (12-78)
[2017-05-25 19:54] LABS: ALKALINE PHOSPHATASE 96 U/L (45-117); TOTAL BILIRUBIN ADULT 2.6 MG/DL (0.2-1.0); TOTAL PROTEIN 8.5 GM/DL (6.4-8.2)
[2017-05-25 22:37] VITALS: BP 145/87; PULSE 94; RESP 17; TEMP 98.5; O2SAT 96
[2017-05-26 02:34] VITALS: BP 105/53; PULSE 87; RESP 18; TEMP 98.6; O2SAT 96
[2017-05-26 06:38] VITALS: BP 113/64; PULSE 80; RESP 18; TEMP 99.4; O2SAT 97
[2017-05-26 06:39] VITALS: BP 129/69; PULSE 52; RESP 18; TEMP 98.6; O2SAT 96
[2017-05-26 13:08] VITALS: BP 124/60; PULSE 83; RESP 18; O2SAT 96
--- NOTE | 2017-05-26 15:33 | PD.PSY.CON ---
Provisional Diagnosis Admission Date History of Present Illness Service Psychiatry Consult Requested By alcohol induced mod disorder Reason for Consult De La Cruz act Primary Care Physician No Primary Care Physician HPI 67-year-old male presents the emergency department under the [place] Cruz act for suicidal ideation. Patient reportedly called 911 stating that he was going to kill himself if he did not get what he wanted. He stated this several times to the drivematic machine operator. Patient now arrives stating that he never sought said these things. He appears intoxicated. History is limited. He is able to ambulate without difficulty. He has no known drug allergies. On psychiatric evaluation today the patient is clinically sober, he denies depressive symptoms , he denies anxiety, he denies suicidal or homicidal ideation, denies visual and auditory hallucinate. Patient is fully oriented 3, logical, coherent and relevant. Past Family Social History Coded Allergies: No Known Allergies (Unverified , 09/26/16) No Active Prescriptions or Reported Meds Physical Exam Vital Signs Vital Signs Date Time Temp Pulse Resp B/P (MAP) Pulse Ox O2 Delivery O2 Flow Rate FiO2 05/26/17 13:08 83 18 124/60 (81) 96 Room Air 05/26/17 06:38 99.4 Lab Results Test 05/25/17 19:00 White Blood Count 5.8 TH/MM3 Red Blood Count 4.63 MIL/MM3 Hemoglobin 16.1 GM/DL Hematocrit 46.4 % Mean Corpuscular Volume 100.3 FL Mean Corpuscular Hemoglobin 34.8 PG Mean Corpuscular Hemoglobin Concent 34.7 % Red Cell Distribution Width 13.4 % Platelet Count 203 TH/MM3 Mean Platelet Volume 7.1 FL Neutrophils (%) (Auto) 43.5 % Lymphocytes (%) (Auto) 48.1 % Monocytes (%) (Auto) 6.8 % Eosinophils (%) (Auto) 0.4 % Basophils (%) (Auto) 1.2 % Neutrophils # (Auto) 2.5 TH/MM3 Lymphocytes # (Auto) 2.8 TH/MM3 Monocytes # (Auto) 0.4 TH/MM3 Eosinophils # (Auto) 0.0 TH/MM3 Basophils # (Auto) 0.1 TH/MM3 CBC Comment DIFF FINAL Differential Comment Urine Color YELLOW Urine Turbidity CLEAR Urine pH 7.5 Urine Specific [place] 1.006 Urine Protein NEG mg/dL Urine Glucose (UA) NEG mg/dL Urine Ketones NEG mg/dL Urine Occult Blood NEG Urine Nitrite NEG Urine Bilirubin NEG Urine Urobilinogen LESS THAN 2.0 MG/DL Urine Leukocyte Esterase NEG Microscopic Urinalysis Comment CULT NOT INDICATED Blood Urea Nitrogen 9 MG/DL Creatinine 1.03 MG/DL Random Glucose 98 MG/DL Total Protein 8.5 GM/DL Albumin 4.3 GM/DL Calcium Level 8.8 MG/DL Alkaline Phosphatase 96 U/L Aspartate Amino Transf (AST/SGOT) 71 U/L Alanine Aminotransferase (ALT/SGPT) 55 U/L Total Bilirubin 2.6 MG/DL Sodium Level 142 MEQ/L Potassium Level 4.0 MEQ/L Chloride Level 106 MEQ/L Carbon Dioxide Level 25.9 MEQ/L Anion Gap 10 MEQ/L Estimat Glomerular Filtration Rate 72 ML/MIN Thyroid Stimulating Hormone 3rd Gen 2.660 uIU/ML Urine Opiates Screen NEG Urine Barbiturates Screen NEG Urine Amphetamines Screen NEG Urine Benzodiazepines Screen NEG Urine Cocaine Screen NEG Urine Cannabinoids Screen NEG Ethyl Alcohol Level 308 MG/DL Mental Status Examination Appearance: Appropriate Consciousness: Alert Orientation: x4 Motor Activity: Normal gait Speech: Unremarkable Language: Adequate Fund of Knowledge: Adequate Attention and Concentration: Adequate Memory: Unremarkable Mood: Appropriate Affect: Appropriate Thought Process & Associations: Intact Thought Content: Appropriate Hallucination Type: None Delusion Type: None Suicidal Ideation: No Suicidal Plan: No Suicidal Intention: No Homicidal Ideation: No Homicidal Plan: No Homicidal Intention: No Insight: Adequate Judgment: Adequate Assessment & Plan Problem List: (1) Alcohol-induced mood disorder ICD Codes: F10.94 - Alcohol use, unspecified with alcohol-induced mood disorder Status: Acute Assessment & Plan: The patient does not meet criteria for involuntary psychiatric admission at this moment. He denies suicidal or homicidal ideation , he denies visual and auditory hallucinations. He declines offer for referral to detox. De La Cruz act will be lifted. Assessment & Plan Estimated LOS: Zaire Craven MD May 26, 2017 15:33
--- NOTE | 2017-05-26 16:11 | PD ---
Physical Exam Time Seen by Provider: 16:[address] Lester has evaluated patient, lifted De La Cruz act and cleared the patient for discharge. Data Data Last Documented VS Vital Signs Date Time Temp Pulse Resp B/P (MAP) Pulse Ox O2 Delivery O2 Flow Rate FiO2 05/26/17 13:08 83 18 124/60 (81) 96 Room Air 05/26/17 06:38 99.4 Orders Orders Complete Blood Count With Diff (05/25/17 18:43) Comprehensive Metabolic Panel (05/25/17 18:43) Thyroid Stimulating Hormone (05/25/17 18:43) Urinalysis - C+S If Indicated (05/25/17 18:43) Psych Screen (05/25/17 18:43) Drug Screen, Random Urine (05/25/17 18:43) Alcohol (Ethanol) (05/25/17 18:43) Diet Regular Basic (05/26/17 Breakfast) Diet Regular Basic (05/26/17 Lunch) Labs Laboratory Tests Test 05/25/17 19:00 White Blood Count 5.8 TH/MM3 Red Blood Count 4.63 MIL/MM3 Hemoglobin 16.1 GM/DL Hematocrit 46.4 % Mean Corpuscular Volume 100.3 FL Mean Corpuscular Hemoglobin 34.8 PG Mean Corpuscular Hemoglobin Concent 34.7 % Red Cell Distribution Width 13.4 % Platelet Count 203 TH/MM3 Mean Platelet Volume 7.1 FL Neutrophils (%) (Auto) 43.5 % Lymphocytes (%) (Auto) 48.1 % Monocytes (%) (Auto) 6.8 % Eosinophils (%) (Auto) 0.4 % Basophils (%) (Auto) 1.2 % Neutrophils # (Auto) 2.5 TH/MM3 Lymphocytes # (Auto) 2.8 TH/MM3 Monocytes # (Auto) 0.4 TH/MM3 Eosinophils # (Auto) 0.0 TH/MM3 Basophils # (Auto) 0.1 TH/MM3 CBC Comment DIFF FINAL Differential Comment Urine Color YELLOW Urine Turbidity CLEAR Urine pH 7.5 Urine Specific [place] 1.006 Urine Protein NEG mg/dL Urine Glucose (UA) NEG mg/dL Urine Ketones NEG mg/dL Urine Occult Blood NEG Urine Nitrite NEG Urine Bilirubin NEG Urine Urobilinogen LESS THAN 2.0 MG/DL Urine Leukocyte Esterase NEG Microscopic Urinalysis Comment CULT NOT INDICATED Blood Urea Nitrogen 9 MG/DL Creatinine 1.03 MG/DL Random Glucose 98 MG/DL Total Protein 8.5 GM/DL Albumin 4.3 GM/DL Calcium Level 8.8 MG/DL Alkaline Phosphatase 96 U/L Aspartate Amino Transf (AST/SGOT) 71 U/L Alanine Aminotransferase (ALT/SGPT) 55 U/L Total Bilirubin 2.6 MG/DL Sodium Level 142 MEQ/L Potassium Level 4.0 MEQ/L Chloride Level 106 MEQ/L Carbon Dioxide Level 25.9 MEQ/L Anion Gap 10 MEQ/L Estimat Glomerular Filtration Rate 72 ML/MIN Thyroid Stimulating Hormone 3rd Gen 2.660 uIU/ML Urine Opiates Screen NEG Urine Barbiturates Screen NEG Urine Amphetamines Screen NEG Urine Benzodiazepines Screen NEG Urine Cocaine Screen NEG Urine Cannabinoids Screen NEG Ethyl Alcohol Level 308 MG/DL MDM Supervised Visit with [facility]IR[facility]: No Narrative Course Dr. Lester has evaluated patient, lifted De La Cruz jian and cleared the patient for discharge. Patient contracts safety. Denies suicidal or homicidal ideations. [facility] be [facility]. Has friends and family for support. Patient was medically cleared by alternate provider prior to psych screening. Patient has been evaluated by psychiatry and and is now cleared for discharge. Diagnosis Primary Impression: Alcohol-induced mood disorder Referrals: [facility] (Out patient) [facility] Primary Care Physician Psychiatrist Keli VILLAR Behavioral Patient Instructions: Abuse of Alcohol (ED), Alcohol Dependence (ED), Alcohol Intoxication (ED), General Instructions Additional Instruction: Contract safety to your self and others Stop drinking alcohol Follow-up in the community for community support, such as Alcoholics Anonymous Follow-up with psychiatry Follow-up with primary care provider Follow-up with Anselmo Youngblood Return to the emergency department immediately with worsening of symptoms Med/Other Pt SpecificInfo: No Change to Meds, No Meds Exist/No RX given Scripts No Active Prescriptions or Reported Meds Disposition: 01 DISCHARGE HOME Condition: Stable Romana Malloy May 26, 2017 16:11
== END 2017-05-26 16:33 | disposition home or self-care (01) ==
LOC: NEPD 18:17 → NEPJ 05-26 16:33
DX: F10.94 Alcohol use, unspecified with alcohol-induced mood disorder (principal); R45.851 Suicidal ideations; Z87.891 Personal history of nicotine dependence
CPT/HCPCS: 80053; 80307; 81001; 84443; 85025; 99284

== ENCOUNTER 2017-08-18 19:27 | Inpatient (IN) | payer MEDICARE, OTHER ==
[2017-08-18 19:35] VITALS: BP 127/76; PULSE 94; RESP 16; TEMP 98.2; O2SAT 93
[2017-08-18] MEDS ORDERED: LIDOCAINE 1%/EPINEPHrine 1:100,000 SOLN 30 ML VIAL ONE (19:38)
[2017-08-18] MEDS ORDERED: SODIUM CHLOR 0.9% 1000 ML INJ 1,000 ML IV ONE (20:15)
[2017-08-18] MEDS ORDERED: LIDOCAINE 1%/EPINEPHrine 1:100,000 SOLN 20 ML VIAL INFIL ONE (20:15)
[2017-08-18 20:31] LABS: AUTOMATED NEUTROPHIL # 3.8 TH/MM3 (1.8-7.7); BASOPHIL # 0.1 TH/MM3 (0-0.2); BASOPHIL % 1.7 % (0.0-2.0); EOSINOPHIL % 0.1 % (0.0-4.0); HEMATOCRIT 39.6 % (39.0-51.0); HEMOGLOBIN 13.1 GM/DL (13.0-17.0); LYMPH % 24.9 % (9.0-44.0); LYMPHOCYTE # 1.4 TH/MM3 (1.0-4.8); MEAN CELL VOLUME 98.1 FL (80.0-100.0); MEAN CORPUSCULAR HEMOGLOBIN 32.4 PG (27.0-34.0); MEAN CORPUSCULAR HGB CONC 33.1 % (32.0-36.0); MEAN PLATELET VOLUME 7.1 FL (7.0-11.0); MONO % 5.7 % (0.0-8.0); MONOCYTE # 0.3 TH/MM3 (0-0.9); NEUT % 67.6 % (16.0-70.0); PLATELET COUNT 191 TH/MM3 (150-450); RED BLOOD COUNT 4.04 MIL/MM3 (4.50-5.90); RED CELL DISTRIBUTION WIDTH 15.7 % (11.6-17.2); WHITE BLOOD COUNT 5.6 TH/MM3 (4.0-11.0)
[2017-08-18 20:46] LABS: PROTHROMBIN TIME - PATIENT 10.5 SEC (9.8-11.6)
[2017-08-18 20:58] LABS: ALBUMIN 3.1 GM/DL (3.4-5.0); AST (GOT) 29 U/L (15-37); BICARBONATE 20.7 MEQ/L (21.0-32.0); BLOOD UREA NITROGEN 10 MG/DL (7-18); CALCIUM 7.5 MG/DL (8.5-10.1); CHLORIDE 111 MEQ/L (98-107); CREATININE 0.89 MG/DL (0.60-1.30); GLOMERULAR FILTRATION RATE 85 ML/MIN (>89); GLUCOSE,RANDOM 113 MG/DL (74-106); SODIUM (NA) 144 MEQ/L (136-145)
[2017-08-18 20:59] LABS: ALT (GPT) 26 U/L (12-78)
[2017-08-18 21:03] LABS: ALKALINE PHOSPHATASE 92 U/L (45-117); TOTAL BILIRUBIN ADULT 0.7 MG/DL (0.2-1.0); TOTAL PROTEIN 6.2 GM/DL (6.4-8.2)
--- NOTE | 2017-08-18 21:06 | RADRPT ---
EXAM DATE: 08/18/2017 9:01 PM EDT AGE/SEX: 67 years / Male INDICATIONS: Trauma, fall today. CLINICAL DATA: This is the patient's initial encounter. Patient reports that signs and symptoms have been present for 1 day and indicates a pain score of Nonresponsive. MEDICAL/SURGICAL HISTORY: Non-responsive. Non-responsive. RADIATION DOSE: 64.63 CTDI (mGy) COMPARISON: [facility] [place] BRAIN W/O CONTRAST, 08/22/2016. . TECHNIQUE: CT of the head without contrast. Using automated exposure control and adjustment of the mA and/or kV according to patient size, radiation dose was kept as low as reasonably achievable to ob tain optimal diagnostic quality images. DICOM format image data is available electronically for revi ew and comparison. FINDINGS: Cerebrum: The ventricles are normal for age. No evidence of midline shift, mass lesion, hemorrhage or acute infarction. No extraaxial fluid collections are seen. Posterior Fossa: The cerebellum and brainstem are intact. The 4th ventricle is midline. The cerebe llopontine angle is unremarkable. Extracranial: The visualized portion of the orbits is intact. Skull: The calvaria is intact. No evidence of skull fracture. CONCLUSION: 1. No acute intracranial abnormalities. Right parietal scalp swelling. Electronically signed by: Edis Borrero MD 08/18/2017 9:05 PM EDT
--- NOTE | 2017-08-18 21:13 | RADRPT ---
EXAM DATE: 08/18/2017 9:07 PM EDT AGE/SEX: 67 years / Male INDICATIONS: Trauma, fall today. CLINICAL DATA: This is the patient's initial encounter. Patient reports that signs and symptoms have been present for 1 day and indicates a pain score of Nonresponsive. MEDICAL/SURGICAL HISTORY: Non-responsive. Non-responsive. RADIATION DOSE: 21.96 CTDI (mGy) COMPARISON: No prior exams available for comparison. TECHNIQUE: Contiguous images in the axial and coronal planes were obtained using helical multirow de tector technique. Using automated exposure control and adjustment of the mA and/or kV according to p atient size, radiation dose was kept as low as reasonably achievable to obtain optimal diagnostic sanjuanita lity images. DICOM format image data is available electronically for review and comparison. FINDINGS: There are segmental fractures of the left zygomatic arch. There is a fracture through the angle of ma ndible on the left side is mildly displaced. There is a hematoma within the left masseter muscle and there is hemorrhage around the left submandibular gland with overlying soft tissue swelling. Globes a re intact. CONCLUSION: 1. Fracture of angle of left mandible and segmental fractures of left zygomatic arch. 2. Hematoma in left masseter muscle and left submandibular gland with overlying soft tissue swelling . Electronically signed by: Edis Borrero MD 08/18/2017 9:12 PM EDT
--- NOTE | 2017-08-18 21:17 | RADRPT ---
EXAM DATE: 08/18/2017 9:05 PM EDT AGE/SEX: 67 years / Male INDICATIONS: Trauma, fall today. CLINICAL DATA: This is the patient's initial encounter. Patient reports that signs and symptoms have been present for 1 day and indicates a pain score of Nonresponsive. MEDICAL/SURGICAL HISTORY: Non-responsive. Non-responsive. RADIATION DOSE: 20.84 CTDI (mGy) COMPARISON: No prior exams available for comparison. TECHNIQUE: Contiguous axial images were obtained using helical multirow detector technique. The vol umetric data was post-processed with multiplanar reconstruction in oblique axial, sagittal, and coron al planes. Using automated exposure control and adjustment of the mA and/or kV according to patient s ize, radiation dose was kept as low as reasonably achievable to obtain optimal diagnostic quality soham ges. DICOM format image data is available electronically for review and comparison. FINDINGS: There is no acute fracture or spondylolisthesis. No prevertebral soft tissue swelling. No bony canal stenosis. CONCLUSION: 1. No acute findings. Electronically signed by: Edis Borrero MD 08/18/2017 9:15 PM EDT
--- NOTE | 2017-08-18 21:27 | PD ---
HPI Chief Complaint: Fall Time Seen by Provider: 20:01 Travel History International Travel<30 days: No Contact w/Intl Traveler<30days: No Traveled to known affect area: No History of Present Illness HPI Patient is a 67-year-old male who is brought in by EMS after sustaining a head injury. Patient is currently intoxicated, unable to tell me how he was injured. He complains of pain to his head and denies any other injuries. Patient provides no other history. [facility] Past Medical History Diabetes: No Diminished Hearing: No Immunizations Current: No Social History Alcohol Use: Yes Tobacco Use: No Substance Use: No Allergies-Medications (Allergen,Severity, Reaction): Coded Allergies: No Known Allergies (Verified Adverse Reaction, Unknown, 08/18/17) Reported Meds & Prescriptions Reported Meds & Active Scripts Active No Active Prescriptions or Reported Medications Review of Systems ROS Limitations: Intoxication Physical Exam Narrative GENERAL: Awake and alert, in no acute distress. SKIN: stellate wound to the right occiput. HEAD: Atraumatic. Normocephalic. EYES: Pupils equal and round and reactive. No scleral icterus. EOMI. ENT: Mucous membranes pink and moist. Large swelling to the left side of the jaw. NECK: Trachea midline. No JVD. CARDIOVASCULAR: Regular rate and rhythm. No murmur appreciated. RESPIRATORY: No accessory muscle use. Clear to auscultation. Breath sounds equal bilaterally. GASTROINTESTINAL: Abdomen soft, non-tender, nondistended. MUSCULOSKELETAL: No obvious deformities. No clubbing. No cyanosis. No edema. NEUROLOGICAL: Awake and alert, obviously intoxicated. No obvious cranial nerve deficits. Motor grossly within normal limits. Normal speech. Data Data Last Documented VS Vital Signs Date Time Temp Pulse Resp B/P (MAP) Pulse Ox O2 Delivery O2 Flow Rate FiO2 08/18/17 19:35 98.2 94 16 127/76 (93) 93 Orders Orders Lidocai-Epi 1%-1:100,000 Inj (Xylocaine- (08/18/17 19:38) Ct Brain W/O Iv Contrast(Rout) (08/18/17 ) Ct Cerv Spine W/O Contrast (08/18/17 ) Iv Access Insert/Monitor (08/18/17 20:07) Complete Blood Count With Diff (08/18/17 20:07) Comprehensive Metabolic Panel (08/18/17 20:07) Act Partial Throm Time (Ptt) (08/18/17 20:07) Prothrombin Time / Inr (Pt) (08/18/17 20:07) Type And Screen (08/18/17 20:07) Alcohol (Ethanol) (08/18/17 20:07) Sodium Chlor 0.9% 1000 Ml Inj (Ns 1000 M (08/18/17 20:15) Lidocai-Epi 1%-1:100,000 Inj (Xylocaine- (08/18/17 20:15) Ct Facial Bones W/O Iv Cont (08/18/17 ) Ampicillin-Sulbactam Inj (Unasyn Inj) (08/18/17 22:00) Methylprednisolone So Succ Inj (Solumedr (08/18/17 22:00) Labs Laboratory Tests Test 08/18/17 20:15 White Blood Count 5.6 TH/MM3 Red Blood Count 4.04 MIL/MM3 Hemoglobin 13.1 GM/DL Hematocrit 39.6 % Mean Corpuscular Volume 98.1 FL Mean Corpuscular Hemoglobin 32.4 PG Mean Corpuscular Hemoglobin Concent 33.1 % Red Cell Distribution Width 15.7 % Platelet Count 191 TH/MM3 Mean Platelet Volume 7.1 FL Neutrophils (%) (Auto) 67.6 % Lymphocytes (%) (Auto) 24.9 % Monocytes (%) (Auto) 5.7 % Eosinophils (%) (Auto) 0.1 % Basophils (%) (Auto) 1.7 % Neutrophils # (Auto) 3.8 TH/MM3 Lymphocytes # (Auto) 1.4 TH/MM3 Monocytes # (Auto) 0.3 TH/MM3 Eosinophils # (Auto) 0.0 TH/MM3 Basophils # (Auto) 0.1 TH/MM3 CBC Comment DIFF FINAL Differential Comment Prothrombin Time 10.5 SEC Prothromb Time International Ratio 1.0 RATIO Activated Partial Thromboplast Time 27.3 SEC Blood Urea Nitrogen 10 MG/DL Creatinine 0.89 MG/DL Random Glucose 113 MG/DL Total Protein 6.2 GM/DL Albumin 3.1 GM/DL Calcium Level 7.5 MG/DL Alkaline Phosphatase 92 U/L Aspartate Amino Transf (AST/SGOT) 29 U/L Alanine Aminotransferase (ALT/SGPT) 26 U/L Total Bilirubin 0.7 MG/DL Sodium Level 144 MEQ/L Potassium Level 3.5 MEQ/L Chloride Level 111 MEQ/L Carbon Dioxide Level 20.7 MEQ/L Anion Gap 12 MEQ/L Estimat Glomerular Filtration Rate 85 ML/MIN Ethyl Alcohol Level 290 MG/DL MDM Medical Decision Making Medical Screen Exam Complete: Yes Emergency Medical Condition: Yes Medical Record Reviewed: Yes Differential Diagnosis ICH vs jaw fracture vs laceration vs neck injury Narrative Course Patient is a 67 year old male who is brought in by EMS due to a head injury. Wound to his head is actively bleeding, had to be sutured to control hemorrhage. He has received a tetanus vaccine at a previous visit. IV established, labs sent. Labs show elevated alcohol level, no other acute abnormalities. CT head shows no acute abnormalities. CT facial bones shows a mandibular fracture and zygomatic arch fracture. CT C-spine shows no acute abnormalities. Last [address] 08/18/17 0000 Signed Impressions: CONCLUSION: 1. Fracture of angle of left mandible and segmental fractures of left zygomati c arch. 2. Hematoma in left masseter muscle and left submandibular gland with overlyin g soft tissue swelling. Head CT 08/18/17 0000 Signed Impressions: CONCLUSION: 1. No acute intracranial abnormalities. Right parietal scalp swelling. Cervical Spine CT 08/18/17 0000 Signed Impressions: CONCLUSION: 1. No acute findings. I spoke with Dr. Menard of facial surgery, he suggests antibiotics, steroids and admission. He will see the patient in the morning. Patient given solumedrol, Unasyn. Admitted to medicine for further management. Procedures Procedure Narrative LACERATION LOCATION: right occiput LENGTH: stellate NUMBER OF STITCHES/SHANNAN: 11 REPAIR: The area of the laceration was prepped with Betadine and sterilely draped. The laceration was infiltrated with 1% lidocaine with epi. The wound was copiously irrigated and explored without evidence of foreign body, tendon injury or neurovascular injury. The wound was closed using 4-0 prolene. This was a single layer repair. A sterile dressing was applied. The patient was advised to keep the dressing clean and dry. Patient tolerated the procedure well. Diagnosis Primary Impression: Head injury Qualified Codes: S09.90XA - Unspecified injury of head, initial encounter Additional Impressions: Laceration Mandible fracture Qualified Codes: S02.609A - Fracture of mandible, unspecified, initial encounter for closed fracture Zygomatic arch fracture Qualified Codes: S02.40FA - Zygomatic fracture, left side, initial encounter for closed fracture Admitting Information Admitting Physician Requests: Admit Scripts No Active Prescriptions or Reported Meds Keira Victoria MD Aug 18, 2017 21:27
[2017-08-18] MEDS ORDERED: AMPICILLIN-SULBACTAM INJ 1,500 MG in SODIUM CHLORIDE 0.9% INJ 100 ML IV ONE (22:00)
[2017-08-18] MEDS ORDERED: methylPREDNISolone SOD SUCC 125 MG/2 ML VIAL IV PUSH ONE (22:00)
[2017-08-18] MEDS ORDERED: MORPHINE SULFATE 4 MG/ML INJ IV PUSH PRN ×2 (22:15)
[2017-08-18] MEDS ORDERED: ONDANSETRON ODT 4 MG TAB SL PRN (22:15)
[2017-08-18] MEDS ORDERED: NALOXONE HCL 0.4 MG/ML AMP IV PUSH PRN (22:15)
[2017-08-18] MEDS ORDERED: SODIUM CHLORIDE 0.9% FLUSH 10 ML FLUSH IV FLUSH PRN (22:15)
[2017-08-18 22:20] VITALS: BP 133/75; PULSE 87; RESP 16; O2SAT 98
[2017-08-18] MEDS ORDERED: LORazepam 1 MG TAB PO PRN (22:30)
[2017-08-18] MEDS ORDERED: FLUMAZENIL 0.5 MG/5 ML VIAL IV PUSH PRN (22:30)
[2017-08-18] MEDS ORDERED: LORazepam 2 MG/ML VIAL IV PUSH PRN ×4 (22:30)
[2017-08-18] MEDS ORDERED: LORazepam 2 MG TAB PO PRN (22:30)
[2017-08-18] MEDS ORDERED: HALOPERIDOL LACTATE 5 MG/ML AMP IM PRN (22:30)
--- NOTE | 2017-08-18 22:34 | HHI.HP ---
[facility] Service [facility] ([place], [place])ists Primary Care Physician No Primary Care Physician Admission Diagnosis mandibular fracture, zygomatic fracture Diagnoses: Travel History International Travel<30 Days: No Contact w/Intl Traveler <30 Da: No Traveled to Known Affected Are: No History of Present Illness 67-year-old male with a past medical history significant for alcohol abuse presents to the emergency department via EMS for the evaluation of head trauma. The patient had a large bleeding head wound and disfiguration of the left jawline. He is currently intoxicated and cannot tell me what happened. He is unsure how he got to the emergency department. He states he would like to sleep. He denies being in any pain. His head laceration was sutured in the emergency department and is now hemostatic. Of note, the patient told the emergency department physician that he was a hemophiliac although he could not tell her what kind. When I asked him about this he denied being a hemophiliac or having any additional medical problems. I clarified this with the patient on multiple occasions. Review of Systems Unable to obtain secondary to patient's clinical condition Past Family Social History Past Medical History Alcohol abuse Past Surgical History None Reported Medications Reported Meds & Active Scripts Active No Active Prescriptions or Reported Medications Allergies: Coded Allergies: No Known Allergies (Verified Allergy, Unknown, 08/18/17) Family History Unable to obtain as the patient does not know Social History Drinks approximately 1 bottle of wine per night. Denies tobacco and illicit drugs. Physical Exam Vital Signs Vital Signs Date Time Temp Pulse Resp B/P (MAP) Pulse Ox O2 Delivery O2 Flow Rate FiO2 08/18/17 22:20 87 16 133/75 (94) 98 Room Air 08/18/17 19:35 98.2 94 16 127/76 (93) 93 Physical Exam GENERAL: male lying in bed sleeping SKIN: No rashes, ecchymoses or lesions. Cool and dry. HEAD: 4 cm laceration to the back of the head. Surrounding erythema. Status post laceration repair. Hemostatic. EYES: Pupils equal round and reactive. Extraocular motions intact. No scleral icterus. No injection or drainage. ENT: Airway patent. Large swelling and malformation on left jaw with erythema. NECK: Trachea midline. No JVD or lymphadenopathy. Supple, nontender, no meningeal signs. CARDIOVASCULAR: Regular rate and rhythm without murmurs, gallops, or rubs. RESPIRATORY: Clear to auscultation. Breath sounds equal bilaterally. No wheezes , rales, or rhonchi. GASTROINTESTINAL: Abdomen soft, non-tender, nondistended. No hepato-splenomegaly , or palpable masses. No guarding. MUSCULOSKELETAL: Extremities without clubbing, cyanosis, or edema. No joint tenderness, effusion, or edema noted. No calf tenderness. NEUROLOGICAL: Awake and alert. Cranial nerves II through XII intact. Motor and sensory grossly within normal limits. Normal speech. Laboratory Laboratory Tests Test 08/18/17 20:15 White Blood Count 5.6 Red Blood Count 4.04 Hemoglobin 13.1 Hematocrit 39.6 Mean Corpuscular Volume 98.1 Mean Corpuscular Hemoglobin 32.4 Mean Corpuscular Hemoglobin Concent 33.1 Red Cell Distribution Width 15.7 Platelet Count 191 Mean Platelet Volume 7.1 Neutrophils (%) (Auto) 67.6 Lymphocytes (%) (Auto) 24.9 Monocytes (%) (Auto) 5.7 Eosinophils (%) (Auto) 0.1 Basophils (%) (Auto) 1.7 Neutrophils # (Auto) 3.8 Lymphocytes # (Auto) 1.4 Monocytes # (Auto) 0.3 Eosinophils # (Auto) 0.0 Basophils # (Auto) 0.1 CBC Comment DIFF FINAL Differential Comment Prothrombin Time 10.5 Prothromb Time International Ratio 1.0 Activated Partial Thromboplast Time 27.3 Blood Urea Nitrogen 10 Creatinine 0.89 Random Glucose 113 Total Protein 6.2 Albumin 3.1 Calcium Level 7.5 Alkaline Phosphatase 92 Aspartate Amino Transf (AST/SGOT) 29 Alanine Aminotransferase (ALT/SGPT) 26 Total Bilirubin 0.7 Sodium Level 144 Potassium Level 3.5 Chloride Level 111 Carbon Dioxide Level 20.7 Anion Gap 12 Estimat Glomerular Filtration Rate 85 Ethyl Alcohol Level 290 Result Diagram: 08/18/17201408/18/172014 Caprini VTE Risk Assessment Caprini VTE Risk Assessment: Mod/High Risk (score >= 2) Caprini Risk Assessment Model Point Value = 1 Point Value = 2 Point Value = 3 Point Value = 5 Age 41-60 Minor surgery BMI > 25 kg/m2 Swollen legs Varicose veins or History of unexplained or recurrent spontaneous Oral contraceptives or hormone replacement Sepsis (< 1 month) Serious lung disease, including pneumonia (< 1 month) Abnormal pulmonary function Acute myocardial infarction Congestive heart failure (< 1 month) History of inflammatory bowel disease Medical patient at bed rest Age 61-74 Arthroscopic surgery Major open surgery (> 45 min) Laparoscopic surgery (> 45 min) Malignancy Confined to bed (> 72 hours) Immobilizing plaster cast Central venous access Age >= 75 History of VTE Family history of VTE Factor V Leiden Prothrombin [id number] Lupus anticoagulant Anticardiolipin antibodies Elevated serum homocysteine Heparin-induced thrombocytopenia Other congenital or acquired thrombophilia Stroke (< 1 month) Elective arthroplasty Hip, pelvis, or leg fracture Acute spinal cord injury (< 1 month) Prophylaxis Regimen Total Risk Factor Score Risk Level Prophylaxis Regimen 0-1 Low Early ambulation 2 Moderate Order ONE of the following: *Sequential Compression Device (SCD) *Heparin 5000 units SQ BID 3-4 Higher Order ONE of the following medications: *Heparin 5000 units SQ TID *Enoxaparin/Lovenox 40 mg SQ daily (WT < 150 kg, CrCl > 30 mL/min) *Enoxaparin/Lovenox 30 mg SQ daily (WT < 150 kg, CrCl > 10-29 mL/min) *Enoxaparin/Lovenox 30 mg SQ BID (WT < 150 kg, CrCl > 30 mL/min) AND/OR *Sequential Compression Device (SCD) 5 or more Highest Order ONE of the following medications: *Heparin 5000 units SQ TID (Preferred with Epidurals) *Enoxaparin/Lovenox 40 mg SQ daily (WT < 150 kg, CrCl > 30 mL/min) *Enoxaparin/Lovenox 30 mg SQ daily (WT < 150 kg, CrCl > 10-29 mL/min) *Enoxaparin/Lovenox 30 mg SQ BID (WT < 150 kg, CrCl > 30 mL/min) AND *Sequential Compression Device (SCD) Assessment and Plan Assessment and Plan Assessment/plan: 1. Mandibular fracture Maxillofacial CT significant for fracture of the angle of the left mandible and segmental fractures of the zygomatic arch with hematoma in the left masseter muscle and left submandibular gland OMFS consulted, appreciate recommendations IV steroids Unasyn 2. Head trauma CT of the head showed scalp swelling without intracranial abnormalities Every 4 hours neuro checks Monitor for signs of bleeding 3. ? Hemophilia Patient adamantly denied being a hemophiliac when I questioned them however mention to the emergency department physician that he was a hemophiliac but could not tell her which type Monitor closely for signs of bleeding H&H every 4 hours 4. Alcohol abuse Thiamine/folate/multivitamin CIWA protocol Monitor for signs of withdrawal FEN N.p.o. Electrolytes: Monitor and replete as needed NS at 75 cc/hour Holding pharmacologic anticoagulation for operative intervention Physician Certification 2 Midnight Certification Type: Admission for Inpatient Services Order for Inpatient Services The services are ordered in accordance with Medicare regulations or non- Medicare payer requirements, as applicable. In the case of services not specified as inpatient-only, they are appropriately provided as inpatient services in accordance with the 2-midnight benchmark. Estimated LOS (days): 2 2 days is the estimated time the patient will need to remain in the hospital, assuming treatment plan goals are met and no additional complications. Post-Hospital Plan: Not yet determined Suma Villagomez MD Aug 18, 2017 22:34
[2017-08-18] MEDS ORDERED: PANTOPRAZOLE SODIUM 40 MG VIAL IV PUSH SCH (23:00)
[2017-08-18] MEDS ORDERED: THIAMINE INJ 100 MG in SODIUM CHLORIDE 0.9% INJ 100 ML IV SCH (23:00)
[2017-08-18] MEDS: SODIUM CHLOR 0.9% 1000 ML INJ 1,000 ML IV SCH (23:19)
[2017-08-18 23:46] VITALS: BP 108/65; PULSE 86; RESP 17; TEMP 98.2; O2SAT 99
[2017-08-19] MEDS: methylPREDNISolone SOD SUCC 40 MG/1 ML VIAL IV PUSH SCH ×2 (04:08→10:00)
[2017-08-19] MEDS: AMPICILLIN-SULBACTAM INJ 3 GM in SODIUM CHLORIDE 0.9% INJ 100 ML IV SCH ×2 (04:09→10:00)
[2017-08-19 04:32] VITALS: BP 111/69; PULSE 84; RESP 16; TEMP 97.9; O2SAT 99
[2017-08-19 05:03] VITALS: PULSE 101
--- NOTE | 2017-08-19 07:50 | MB ---
cc: DerianNestorGeraldharman WELCH Gerald Menard DMD DATE: 08/19/2017 REASON FOR CONSULTATION: Mandible fractures. HISTORY OF PRESENT ILLNESS: This is a 67-year-old male who came in status post evaluation of a head trauma. He came in with a history of alcohol abuse. He had his laceration on his head sewn up by the ED. He came in intoxicated. I have seen this patient this morning. His nurse is at bedside. He is alert, awake and oriented x 3 in no acute distress. The patient refuses to let me examine him. He reports that he is fine. I did inform him that he has got a jaw fracture on his mandible on the left side and then his arch fracture on a cheek bone posteriorly. He says that has been there for long-term specifically his jaw. He refuses to let me examine him. PAST MEDICAL HISTORY: Alcoholism as per report, but he denies anything. MEDICATIONS: Denies. ALLERGIES: DENIED. SOCIAL HISTORY: Drinks wine every night/day. Denies any tobacco or any illicit drug use. PHYSICAL EXAMINATION: VITAL SIGNS: Temperature 97.9, pulse is 101, respiratory rate 16, blood pressure is 111/69, pulse oximetry is 99. CLINICAL EXAM: The patient refused to let me examine him. However, he showed me the edema on the top of his head, which has been closed by the ER physician/ED staff. He refused to let me examine him. His nurse is at bedside. Did stress the importance of examination, did stress the importance of treatment of the fracture secondary to infection, nonunion of the fractures, pain, swelling, unable to eat. The patient says he is fine and refuses to let me examine him. CT scan of the facial bones shows a left mandible angle fracture, and also a left-sided zygomatic arch fracture. LABORATORY DATA: White count is 5.6, H and H 13.1 and 39.6 with a platelet of 191. PT is 10.5. INR is 1.0 with a PTT of 27.3. Toxicology on admission, alcohol was 290. ASSESSMENT: This is a 67-year-old male status post intoxication, unknown mechanism of injury, now with a left mandible angle fracture and a left side zygomatic arch fracture. PLAN: The plan is to do open reduction internal fixation of his left-sided mandibular angle fracture. However, the patient does not allow me to examine him, and refuses any surgery. The patient also has a past history of hemophilia he reports, as per report, but per the medicine physicians, there is no documentation and right now it does not appear to be based on the labs. They are going to do serial H and H. Once again did stress the importance of the need for surgery to minimize the risk of any infection, pain, swelling and he can eat. The patient reports it has been there for some time and he wants to leave. Discussed with the patient the risk of leaving against medical advice. Gerald Menard DMD RT/DL , 07:15 AM , 07:48 AM
[2017-08-19] MEDS ORDERED: SODIUM CHLORIDE 0.9% FLUSH 10 ML FLUSH IV FLUSH SCH (09:00)
[2017-08-19] MEDS: SODIUM CHLOR 0.9% 1000 ML INJ 1,000 ML IV SCH (11:32)
== END 2017-08-19 13:47 | disposition left against medical advice (07) | DRG 159 ==
LOC: NEPC 19:27 → NEDA 22:05 → NEPGCP 08-19 00:04
PROVIDERS: ADMIT Hospitalist; ATTEND Hospitalist
PROC: 0HQ0XZZ Repair Scalp Skin, External Approach (ICD-10-PCS; principal; 2017-08-18)
DX: S02.40FA Zygomatic fracture, left side, initial encounter for closed fracture (principal); F10.129 Alcohol abuse with intoxication, unspecified; S02.652A Fracture of angle of left mandible, initial encounter for closed fracture; S01.01XA Laceration without foreign body of scalp, initial encounter; W19.XXXA Unspecified fall, initial encounter; Y90.8 Blood alcohol level of 240 mg/100 ml or more
CPT/HCPCS: 70450; 70486; 72125; 80053; 80307; 85025; 85610; 85730; 86850; 86900; 86901; C9113; J0295; J2920; J2930; J3411; J7030